=== PATIENT | female | born 1935 | race Caucasian/White ===

== ENCOUNTER 2023-11-07 10:32 | Outpatient (REF) | payer OTHER, SELFPAY ==
[2023-11-07 14:21] LABS: Alanine Aminotransferase 16 U/L (0-31); Albumin Level 3.9 g/dL (3.5-5.0); Alkaline Phosphatase 63 U/L (39-117); Anion Gap 11 (12-20); Aspartate Amino Transferase 17 U/L (5-31); Bilirubin Direct 0.2 mg/dL (0.0-0.5); Bilirubin Total 0.7 mg/dL (0.0-1.0); Blood Urea Nitrogen 13 mg/dL (9-16); Calcium 9.8 mg/dL (8.4-10.2); Carbon Dioxide 27 mmol/L (22-29); Chloride 108 mmol/L (96-108); Cholesterol 195 mg/dL (<200); Estimated Glomerular Filt Rate > 60; Glucose Random 110 mg/dL (60-115); HDL Cholesterol 63 mg/dL (>40); LDL Cholesterol Calculated 99 mg/dL (<100); Potassium 3.3 mmol/L (3.3-5.1); Sodium 143 mmol/L (135-145); Total Protein 6.6 g/dL (6.5-8.0); Triglycerides 168 mg/dL (<150)
[2023-11-07 14:28] LABS: Vitamin D 25-OH Total 39.5 ng/mL (>30)
== END 2023-11-07 10:33 | disposition home or self-care (01) ==
LOC: HO.CHCLDS 10:32
PROVIDERS: Visit Provider Student in an Organized Health Care Education/Training Program
DX: I10 Essential (primary) hypertension (principal); E78.5 Hyperlipidemia, unspecified; E55.9 Vitamin D deficiency, unspecified
CPT/HCPCS: 36415; 80048; 80061; 80076; 82306

== ENCOUNTER 2024-11-05 09:58 | Outpatient (REF) | payer OTHER, SELFPAY ==
--- OUTSIDE RECORDS SUMMARY | 2024-11-05 11:39 | XMS_ITS | Encounter Summary ---
Author Organization [employer] Address [address] [facility] 7t h Floor [place] [id number] Care Team Providers Care Land Lease Information Clerk Name Role Phone Sandy Rivers MD Primary Care Provider [phone] Encounter Details Date Type Department Care Team (Latest Contact Info) Description 08/12/2021 Abstract [facility] CONVERSIONS Dental, Provider, DDS Social History Tobacco Use Types Packs/Day Years Used Date Smoking Tobacco: Never Assessed Comments Unknown Sex and Gender Information Value Date Recorded Sex Assigned at Female 06/06/2022 10:22 AM EDT Legal Sex Female 10:22 AM EDT Gender Identity Female 06/06/2022 10:22 AM EDT Sexual Orientation Straight 06/06/2022 10 :22 AM EDT documented as of this encounter Plan of Treatment Not on file documented as of this encounter Visit Diagnoses Not on filedocumented in this encounter Care Teams Land Lease Information Clerk Relationship Specialty Start Date End Date Sandy Rivers MD [address] [place] [id number] PCP - General Family Medicine 08/15/13 documented as of this encounter
--- OUTSIDE RECORDS SUMMARY | 2024-11-05 11:39 | XMS_ITS | Encounter Summary ---
Author Organization [email or web address] Address [address] [facility] 7t [place] [address] Care Team Providers Care Inspector Material Disposition Name Role Phone Sandy Rivers MD Primary Care Provider [phone] Reason for Visit * Reason Comments Hypertension Encounter Details Date Type Department Care Team (Latest Contact Info) Description 11/05/2024 10:00 AM EDT Office Visit [facility] CHC MED & PEDS [address] [place], [place] [phone] Sandy Rivers MD [address] [place], [place] [id number] Primary hypertension (Primary Dx); Hyperlipidemia, unspecified hyperlipidemia type; Vitamin D deficiency Social History Tobacco Use Types Packs/Day Years Used Date Smoking Tobacco: Never Passive Smoke Exposure: Never Smokeless Tobacco: Never Tobacco Cessation:Counseling Given: Not Answered Alcohol Use Standard Drinks/Week Comments Defer 0 (1 standard drink = 0.6 oz pur e alcohol) Depression Answer Date Recorded Patient Health Questionnaire-9 Score 4 03/13/2024 Patient Health Questionnaire-9 Score 4 03/13/2024 Last PHQ-9: Questionnaire Data Not on file 0 03/13/2024 Housing Stability Answer Date Recorded What is your housing situation today? I have harvinder gates 11/05/[address] you li ve. Do you have problems with any of the following? None of the above 11/05/2024 Food Insecurity Answer Date Recorded Within the past 12 months, y ou worried that your food would run out before you got money to buy more: Never True 11/05/2024 Within the past 12 months,th e food you bought just didn't last and you didn't have enough money to get more: Never True 08/2024 Transportation Answer Date Recorded In the past 12 months, has l ack of transportation kept you from medical appts, meetings, work or from getting things needed for daily living? No 11/05/2024 Utilities Answer Date Recorded In the past 12 months, has t he electric, gas, oil or water company threatened to shut off services in your home? No 11/05/2024 Depression Answer Date Recorded Patient Health Questionnaire-2 Score 2 03/13/2024 Internet Access Answer Date Recorded Internet Access Q1 No 11/05/2024 Internet Access Q2 I do not want or need it 08/2024 Comments No Sex and Gender Information Value Date Recorded Sex Assigned at Female 06/06/2022 10:22 AM EDT Legal Sex Female 10:22 AM EDT Gender Identity Female 06/06/2022 10:22 AM EDT Sexual Orientation Straight 06/06/2022 10 :22 AM EDT documented as of this encounter Last Filed Vital Signs Vital Sign Reading Time Taken Comments Blood Pressure 145/69 11/05/2024 9:39 AM EDT Pulse 93 11/05/2024 9:39 AM EDT Temperature 36.6 ??C (97.9 ??F) 11/05/2024 9:39 AM ED T Respiratory Rate 18 11/05/2024 9:39 AM EDT Oxygen Saturation - - Inhaled Oxygen Concentration - - Weight 87.5 kg (193 lb) 11/05/2024 9:39 AM EDT Height 163.8 cm (5' 4.5 ) 11/05/2024 9:39 AM EDT Body Mass Index 32.62 11/05/2024 9:39 AM EDT documented in this encounter Progress Notes * Sandy Rivers MD - 11/05/2024 10:00 AM EDT Subjective Patient ID: Gracia James is a 89 y.o. female who presents for Hypertension. Hypertension This is a chronic problem. The current episode started more than 1 year ago. The problem is unchanged. The problem is controlled. Pertinent negatives include no anxiety, blurred vision, chest pain, headaches, malaise/fatigue, neck pain, orthopnea, palpitations, PND, shortness of breath or sweats. Risk factors for coronary artery disease include family history and sedentary lifestyle. Past treatments include diuretics. The current treatment provides significant improvement. There are no compliance problems. Review of Systems Constitutional: Negative. Negative for malaise/fatigue. Eyes: Negative for blurred vision. Respiratory: Negative. Negative for shortness of breath. Cardiovascular: Negative for chest pain, palpitations, orthopnea and PND. Gastrointestinal: Negative. Genitourinary: Negative. Musculoskeletal: Negative for neck pain. Neurological: Negative for headaches. Objective Physical Exam Constitutional: Appearance: Normal appearance. Cardiovascular: Rate and Rhythm: Normal rate and regular rhythm. Pulses: Normal pulses. Heart sounds: Normal heart sounds. Pulmonary: Effort: Pulmonary effort is normal. Abdominal: General: Abdomen is flat. Neurological: Mental Status: She is alert. Assessment/Plan Diagnoses and all orders for this visit: Primary hypertension Comments: Well controlled No changes in meds Maintain a low-sodium diet (less than 2 grams per day). Maintain a regular cardiovascular exercise program. Advised to maintain a low-fat, low-cholesterol diet. Counseled regarding importance of weight loss. Counseled re: potential co-morbidities including cardiovascular disease. Orders: - Basic Metabolic Panel; Future - Lipid Panel, Standard; Future - Hepatic Function Panel; Future Hyperlipidemia, unspecified hyperlipidemia type Comments: Cont Statin Advised to maintain a low-fat, low-cholesterol diet. Orders: - Lipid Panel, Standard; Future - Hepatic Function Panel; Future Vitamin D deficiency Comments: Labs ordered Orders: - 25 OH Vitamin D Other orders - Diclofenac Sodium (Voltaren) 1 % gel; Use topical BID documented in this encounter Plan of Treatment Scheduled Orders Name Type Priority Associated Diagnoses Orde r Schedule Basic Metabolic Panel Lab Routine Primary hypertension Expected: 11/05/2024 (Approximate), Expires: 11/05/2025 Lipid Panel, Standard Lab Routine Primary hypertension Hyperlipidemia, unspecified hyperlipidemia type Expected: 11/05/2024 (Approximate), Expires: 11/05/2025 Hepatic Function Panel Lab Routine Primary hypertension Hyperlipidemia, unspecified hyperlipidemia type Expected: 11/05/2024 (Approximate), Expires: 11/05/2025 25 OH Vitamin D Lab Routine Vitamin D deficiency Ordered: 11/05/2024 documented as of this encounter Visit Diagnoses Diagnosis Primary hypertension- Primary Unspecified essential hypertension Hyperlipidemia, unspecified hyperlipidemia type Vitamin D deficiency documented in this encounter Additional Health Concerns Assessment Noted Time PHQ-9 Depression Total Score: 4 03/13/20 24 10:49 AM EDT documented as of this encounter Care Teams Inspector Material Disposition Relationship Specialty Start Date End Date Sandy Rivers MD [address] [place] [address] PCP - General Family Medicine 08/15/13 documented as of this encounter
--- OUTSIDE RECORDS SUMMARY | 2024-11-05 11:39 | XMS_ITS | Encounter Summary ---
Author Organization [employer] Address 75 [facility] 7t [place] [address] Care Team Providers Care Health Actuary Name Role Phone Sandy Rivers MD Primary Care Provider [phone] Reason for Visit * Reason Onset Date Comments Durable Medical Equipment 09/22/2022 Encounter Details Date Type Department Care Team ([facility] st Contact Info) Description 09/22/2022 Telephone C [facility] MED & PEDS [address] [place] [address] Sandy Rivers MD [address] [place] [address] Durable Medical Equipment Social History Tobacco Use Types Packs/Day Years Used Date Smoking Tobacco: Never Assessed Comments Unknown Sex and Gender Information Value Date Recorded Sex Assigned at Female 06/06/2022 10:22 AM EDT Legal Sex Female 10:22 AM EDT Gender Identity Female 06/06/2022 10:22 AM EDT Sexual Orientation Straight 06/06/2022 10 :22 AM EDT documented as of this encounter Miscellaneous Notes * Telephone Encounter - Ileana Wilhelm - 09/22/2022 3:51 PM EST Tc from pt requesting a script for Wipes and Bladder pads/bed pads. [facility] and has fax over script but no reply has come back. Facility Fax number is [phone]. Pt states that facility needs an okay from us to keep providing pt with supplies. If any questions please contact pt at [phone] documented in this encounter Plan of Treatment Not on file documented as of this encounter Visit Diagnoses Not on filedocumented in this encounter Care Teams Health Actuary Relationship Specialty Start Date End Date Sandy Rivers MD [address] [place] [id number] PCP - General Family Medicine 08/15/13 documented as of this encounter
--- OUTSIDE RECORDS SUMMARY | 2024-11-05 11:39 | XMS_ITS | Encounter Summary ---
Author Organization [employer] Address [address] [facility] 7t [place] [address] Care Team Providers Care Pbx Installer Name Role Phone Sandy Rivers MD Primary Care Provider [phone] Encounter Details Date Type Department Care Team (Late st Contact Info) Description 07/06/2023 Orders Only [facility] CHC MED & PEDS [address] [place] [address] Mariajose Costa LPN Social History Tobacco Use Types Packs/Day Years Used Date Smoking Tobacco: Never Passive Smoke Exposure: Never Smokeless Tobacco: Never Alcohol Use Standard Drinks/Week Comments Defer 0 (1 standard drink = 0.6 oz pur e alcohol) Depression Answer Date Recorded Patient Health Questionnaire-9 Score 0 01/12/2023 Housing Stability Answer Date Recorded What is your housing situation today? I have harvindermalaika gates 06/17/[address] you li ve. Do you have problems with any of the following? None of the above 06/17/2023 Food Insecurity Answer Date Recorded Within the past 12 months, y ou worried that your food would run out before you got money to buy more: Never True 06/17/2023 Within the past 12 months,th e food you bought just didn't last and you didn't have enough money to get more: Never True 06/2023 Transportation Answer Date Recorded In the past 12 months, has l ack of transportation kept you from medical appts, meetings, work or from getting things needed for daily living? No 06/17/2023 Utilities Answer Date Recorded In the past 12 months, has t he electric, gas, oil or water company threatened to shut off services in your home? No 06/17/2023 Depression Answer Date Recorded Patient Health Questionnaire-2 Score 0 01/12/2023 Comments Unknown Sex and Gender Information Value Date Recorded Sex Assigned at Female 06/06/2022 10:22 AM EDT Legal Sex Female 10:22 AM EDT Gender Identity Female 06/06/2022 10:22 AM EDT Sexual Orientation Straight 06/06/2022 10 :22 AM EDT documented as of this encounter Plan of Treatment Not on file documented as of this encounter Visit Diagnoses Not on filedocumented in this encounter Additional Health Concerns Assessment Noted Time PHQ-9 Depression Total Score: 0 01/13/20 23 10:38 AM EDT documented as of this encounter Care Teams Pbx Installer Relationship Specialty Start Date End Date Sandy Rivers MD [address] [place] [address] PCP - General Family Medicine 08/15/13 documented as of this encounter
--- OUTSIDE RECORDS SUMMARY | 2024-11-05 11:39 | XMS_ITS | Clinical Summary ---
Author Organization [employer] Address [address] [facility] 7t [place] [address] Care Team Providers Care Skin Diving Teacher Name Role Phone Sandy Rivers MD Primary Care Provider [phone] Allergies No known active allergies Medications loratadine (Claritin) 10 MG tablet Take 1 tablet by mouth at bed time. 03/30/20 16 Active Multiple Vitamin (Multi-Vitamin) tablet Take 1 tablet by mouth at bed time. 08/22/19 21 Active fluticasone (Flonase) 50 MCG/ACT nasal spray INSTILL ONE SPRAY IN EACH NOSTRIL EVERY DAY 16 g 3 06/19/20 23 Active hydroCHLOROthiaz jorge (HYDRODiuril) 25 MG tablet Take 1 tablet (25 mg) by mouth Once per day. 90 tablet 3 03/13/20 24 Active FLUoxetine (PROzac) 10 MG capsule Take 1 capsule (10 mg) by mouth Once per day. 90 capsule 3 03/13/20 24 025 Active rosuvastatin (Crestor) 20 MG tablet Take 1 tablet by mouth nightly before bed 90 tablet 3 03/13/20 24 Active Calcium + Vitamin D3 600-10 MG-MCG tablet Take 1 tablet by mouth 2 times daily. Active IBU 800 MG tablet TAKE ONE TABLET BY MOUTH THREE TIMES DAILY WITH FOOD NEEDED 90 tablet 5 07/18/20 24 Active silver sulfADIAZINE (Silvadene) 1 % cream APPLY TO THE AFFECTED AREA(S) EVERY DAY DIRECTED 50 g 2 09/17/19 25 Active Diclofenac Sodium (Voltaren) 1 % gel Use topical BID 100 g 3 11/06/19 25 Active polyethylene glycol, PEG, 3350 (MiraLax) 17 GM/SCOOP powder Take 1 packet by mouth every 12 (twelve) hours. 12/22/19 17 025 Discontinued Active Problems Problem Noted Date Diagnosed Date Primary hypertension 01/12/2023 Osteopenia 05/04/2012 Hyperlipidemia 03/26/2012 Inguinal lymphadenopathy 03/26/2012 Vitamin D deficiency 03/26/2012 Encounters Date Type Department Care Team Description 11/05/2024 10:00 AM EDT Office Visit [facility] MED & PEDS [address] [facility] [place] [address] Sandy Rivers MD Primary hypertension (Primary Dx); Hyperlipidemia, unspecified hyperlipidemia type; Vitamin D deficiency 11/05/2024 Travel 10/14/2024 Telephone [facility] MED & PEDS [address] [facility] [place] [address] Sandy Rviers MD Nurse Triage 09/13/2024 Refill [facility] MED & PEDS [address] [facility] [place] [address] Sandy Rivers MD 08/20/2024 11:30 AM EST Office Visit [facility] ADULT DENTAL [address] [facility] [place] [address] Nieves Tanner DMD 08/20/2024 Travel from Last 3 Months Immunizations Name Administration Dates Next Due Influenza High-dose Quadriva lent Preservative Free 06/03/2022,06/10/2021,04/27/2020 Influenza Quadrivalent Adjuvanted 06/12/2023 Influenza injectable quadriv alent IIV4 with preservative 05/27/2019 Influenza injectable quadriv alent preservative free 09/11/2018 Pneumococcal Conjugate PCV 13 05/22/2018 Pneumococcal Polysaccharide PPSV23 05/27/2019 Tdap 03/10/2016 Zoster, Recombinant 08/27/2020,05/28/2020 Social History Tobacco Use Types Packs/Day Years [...] Orientation Straight 06/06/2022 10 :22 AM EDT Last Filed Vital Signs Vital Sign Reading Time Taken Comments Blood Pressure 145/69 11/05/2024 9:39 AM EDT Pulse 93 11/05/2024 9:39 AM EDT Temperature 36.6 ??C (97.9 ??F) 11/05/2024 9:39 AM ED T Respiratory Rate 18 11/05/2024 9:39 AM EDT Oxygen Saturation 96% 03/13/2024 10:46 AM EDT Inhaled Oxygen Concentration - - Weight 87.5 kg (193 lb) 11/05/2024 9:39 AM EDT Height 163.8 cm (5' 4.5 ) 11/05/2024 9:39 AM EDT Body Mass Index 32.62 11/05/2024 9:39 AM EDT Plan of Treatment Health Maintenance Due Date Last Done Comments RSV Patients and Patients Aged 60 years or older (1 - 1-dose 75+ series) 2011 Alcohol/Substance Use Screening 11/06/2024 11/07/2023 Dental Oral Exam 12/18/2024 06/19/2024, 12/27/2022 Dental Prophylaxis 12/18/2024 06/19/2024, 0 12/04/2023, 12/27/2022, Additional history exists Depression Screening 03/13/2025 03/13/2024, 03/13/20 24 Dental X-Ray: Bitewings 08/21/2025 08/20/19 25, 06/19/2024, 12/27/2022, Additional history exists SDOH Screening 11/05/2025 11/05/2024 Tobacco Screening 11/05/2025 11/05/2024 DTaP/Tdap/Td Vaccines (2 - Td or Tdap) 03/10/2026 03/10/2016 Dental X-Ray: Full Mouth 06/20/2027 06/19/2024 Lipid Panel 11/06/2028 11/07/2023, 01/05, 12/09/2021, Additional history exists Pneumococcal Vaccine: 50+ Years Completed 05/27/2019, 05/22/2018 Zoster Vaccines Completed 08/27/2020, 05/28/2020 COVID-19 Vaccine Completed 05/14/2024, 01/2023, 06/22/2022, Additional history exists Influenza Vaccine Completed 05/14/2024, , 06/03/2022, Additional history exists HIB Vaccines Aged Out No longer eligi ble based on patient's age to complete this topic HPV Vaccines Aged Out No longer eligi ble based on patient's age to complete this topic Hepatitis A Vaccines Aged Out No long er eligible based on patient's age to complete this topic Hepatitis B Vaccines Aged Out No long er eligible based on patient's age to complete this topic IPV Vaccines Aged Out No longer eligi ble based on patient's age to complete this topic Meningococcal Vaccine Aged Out No lindsay maria victoria eligible based on patient's age to complete this topic RSV under 20 months Aged Out No longe r eligible based on patient's age to complete this topic Rotavirus Vaccines Aged Out No longer eligible based on patient's age to complete this topic Procedures Procedure Name Priority Date/Time Associated Diagnosis Comments CASE PRESENTATION, DETAILED AND EXTENSIVE TREATMENT PLANNING Routine 08/20/2024 11:30 AM EST BITEWING - SINGLE RADIOGRAPHIC IMAGE Routine 08/20/2024 11:30 AM EST INTRAORAL - PERIAPICAL FIRST RADIOGRAPHIC IMAGE Routine 08/20/2024 11:30 AM EST LIMITED ORAL EVALUATION - PROBLEM FOCUSED Routine 08/20/2024 11:30 AM EST PROPHYLAXIS - ADULT Routine 06/19/2024 1 0:00 AM EST INTRAORAL - COMPLETE SERIES OF RADIOGRAPHIC IMAGES Routine 06/19/2024 10:00 AM EST PERIODIC ORAL EVALUATION - ESTABLISHED PATIENT Routine 06/19/2024 10:00 AM EST LIPID PANEL, STANDARD Routine 11/07/2023 10:34 AM EDT Hyperlipidemia, unspecified hyperlipidemia type from Last 3 Months or Most Recently Relevant to Health Maintenance Results * (ABNORMAL) Lipid Panel, Standard (11/07/2023 10:34 AM EDT) Triglycerides 168(H) <150 mg/dL [facility] Comment:Desirable Triglyceri de: less than 150 mg/dLBorderline High Triglyceride 150-199 mg/dLHigh Triglyceride: 200-499 mg/dLVery High Triglyceride: greater than or equal to 5OO mg/dL Cholesterol 195 <200 mg/dL [facility] Comment:Desirable Cholestero l: less than 200 mg/dLBorderline High Cholesterol: 200-239 mg/dLHigh Cholesterol: greater than 239 mg/dL LDL Cholesterol Calculated 99 <100 mg/dL [facility] Comment:Desirable LDL: less than 100 mg/dLNear Optimal/Above Optimal LDL: 110- 129 mg/dLBorderline High LDL: 130-159 mg/dLHigh LDL: 160-189 mg/dLVery High LDL: greater than or equal to 190 mg/dL HDL Cholesterol 63 >40 mg/dL [facility] Comment:Desirable HDL: great er than 40 mg/dL Note: This HDL assay may give artificially low results in patients with liver disease. Blood Venous blood specimen / Unknown 11/07/2023 10:34 AM EDT 11/07/2023 1:48 PM EDT us Sandy Rivers MD LAB BLOOD ORDERABLES Final Resul t [facility] [address] [place] [address] [phone] from Last 3 Months or Most Recently Relevant to Health Maintenance Insurance D[facility]AL - [facility] Care Teams Skin Diving Teacher Relationship Specialty Start Date End Date Sandy Rivers MD [address] [place] [address] PCP - General Family Medicine 08/15/13
--- OUTSIDE RECORDS SUMMARY | 2024-11-05 11:39 | XMS_ITS | Clinical Summary ---
Author Organization [facility] Address [address] [place] [address] Care Team Providers Care Car Packer Name Role Phone Osvaldo South MD Primary Care Provider [phone] Medications Medication Sig Dispensed Refills Start Date End Date Status rosuvastatin (CRESTOR) tablet 20 mg Take 20 mg by mouth daily. 0 11/15/2021 Active hydroCHLOROthiazide (HYDRODIURIL) tablet 25 mg Take 25 mg by mouth daily. 0 11/24/2021 Active ibuprofen 800 MG tablet TAKE ONE TABLET BY MOUTH THREE TIMES DAILY WITH FOOD NEEDED 0 11/01/2021 Active Calcium + Vitamin D3 600-10 MG-MCG TABS TAKE ONE TABLET TWICE DAILY 0 11/02/2021 Active Family History Medical History Relation Name Comments Cancer Mother Cancer Sister Relation Name Status Comments Mother Sister Social History Tobacco Use Types Packs/Day Years Used Date Smoking Tobacco: Never Assessed Sex and Gender Information Value Date Recorded Sex Assigned at Not on file Gender Identity Not on file Sexual Orientation Not on file Job Start Date Occupation Industry Not on file Not on file Not on file Last Filed Vital Signs Vital Sign Reading Time Taken Comments Blood Pressure - - Pulse - - Temperature - - Respiratory Rate - - Oxygen Saturation - - Inhaled Oxygen Concentration - - Weight 93 kg (205 lb) 12/24/2021 10:04 AM EDT Height 162.6 cm (5' 4 ) 12/24/2021 10:04 AM EDT Body Mass Index 35.19 12/24/2021 10:04 AM EDT Plan of Treatment Health Maintenance Due Date Last Done Comments COVID-19 Vaccine (#1) 1936 Depression Screening 1948 BMI Counseling 1954 Preventative Health Evaluation 1954 DTap / Tdap / Td (1 - Tdap) 1955 Shingrix-Zoster Vaccine (1 of 2) 1986 Fall Risk Assessment 2001 Osteoporosis Screening (DEXA Scan) 2001 Pneumococcal Vaccine (1 of 1 - PCV) 2001 RSV Adult > 60+ Yrs or Pregn ant (1 - 1-dose 75+ series) 2011 Influenza Vaccine (#1) 2024 Hepatitis B Vaccines Aged Out No long er eligible based on patient's age to complete this topic RSV Ped < 20 months Aged Out No longe r eligible based on patient's age to complete this topic Care Teams Car Packer Relationship Specialty Start Date End Date Po, Osvaldo Mir MD [address] [place] [address] [address] [facility] [place] [address] PCP - General Internal Medicine 12/16/21
--- OUTSIDE RECORDS SUMMARY | 2024-11-05 11:39 | XMS_ITS | Data Portability ---
Author Organization [employer] [place] [employer] Address [address] [place] [id number] Care Team Providers Care Grinder Operator External Tool Name Role Phone HIM CCA OTHER Assessment Encounter Date Assessment Date Assessment LastModified by Organization Details LastModified Time 12/24/2023 12/24/2023 I have reviewed and agree with the assessment and plan as documented by the overnight stocker. I provided real-time medical direction for this encounter and was immediately available to provide additional phone-based assistance as needed. 88F presenting with sore throat x 3 days. Pt recently with pink eye, seen at doctors office on Monday and given erythromycin ointment. She said immediately after, sore throat started. No sick contacts. Able to tolerate small sips of fluids, but difficulty eating solids. No cough or congestion. Slight runny nose. O/E: Pt appears well hydrated. Eye exam normal. Oral pharynx with slight erythema, no significant swelling. Strep negative. Suspect viral pharyngitis. Salt water gargle, medicated lozenges, chloraseptic spray. Recommend Tylenol PRN and ibuprofen as needed (pt without contraindications to NSAIDS). Encouraged adequate PO intake. Red flags and return precautions discussed. paysola Not available 12/24/2023 13:50:41 Plan of Treatment Reminders Order Date Submit Date Provider Last Modified By Organization Details Last Modified Time Details Appointments None record ed. Lab None record ed. Referral None record ed. Procedures None record ed. Surgeries None record ed. Imaging None record ed. Medication Orders None record ed. Patient TargetsNo targets recorded. Patient InstructionsNo instructions recorded. Reason for Referral None Reported. Medical Equipment None Reported. Medications Name Sig Start Date Stop Date Status Note LastModified by Organization Details LastModified Time ibuprofen 800 mg tablet TAKE ONE TABLET BY MOUTH THREE TIMES DAILY WITH FOOD NEEDED active Not Available Not Available No t Available ketorolac 0.5 % eye drops place 1 drop in operative eye twice daily starting 2 days before surgery active Not Available Not Available No t Available erythromycin 5 mg/gram (0.5 %) eye ointment APPLY ONE-HALF INCH strip TO LEFT lower eyelid EVERY 6 HOURS FOR 10 DAYS active Not Available Not Available No t Available fluoxetine 10 mg capsule TAKE ONE CAPSULE EVERY MORNING active Not Available Not Available No t Available hydrochloroth iazide 25 mg tablet TAKE ONE TABLET EVERY DAY active Not Available Not Available No t Available fluticasone propionate 50 mcg/actuation nasal spray,suspens ion INHALE 1 SPRAY IN EACH NOSTRIL ONCE DAILY active Not Available Not Available N ot Available rosuvastatin 20 mg tablet TAKE ONE TABLET EVERY NIGHT BEFORE BEDTIME active Not Available Not Available No t Available calcium 600 mg (as carbonate)-vi tamin D3 10 mcg (400 unit) tablet TAKE ONE TABLET TWICE DAILY active Not Available Not Available No t Available Artificial Tears ([id number] ell-glycerin) 1 %-0.2 %-0.2 % eye drops PLACE ONE DROP IN EACH EYE FOUR TIMES DAILY active Not Available Not Available No t Available Vitals Date Recorded Heart rate Respiratory rate Oxygen saturation Oxygen saturation in Arterial blood by Pulse oximetry Body temperature Systolic blood pressure Diastolic blood pressure Provider Name and Address Organization Details Last Updated DateTime 4 92 /min 16 /min 96 % 96 % 98.3 [degF] 150 mm[Hg] 90 mm[Hg] Bobbi Wakefield MD [address] [place] [address],[address], [place], [phone], [place] - [employer] 4 13:46:53 Date Recorded Body temperature Oxygen saturation Oxygen saturation in Arterial blood by Pulse oximetry Heart rate Respiratory rate Systolic blood pressure Diastolic blood pressure Provider Name and Address Organization Details Last Updated DateTime 4 98.4 [degF] 96 % 96 % 93 /min 16 /min 150 mm[Hg] 90 mm[Hg] Not Available [place] [facility] - [employer] 4 14:15:28 Social History None recorded. Functional Status None recorded. Mental Status None recorded. Family History Nothing Reported. Medical History No medical history recorded. Gynecological HistoryNo gynecological history recorded. Obstetrics History GPAL:G 0 P 0 0 0 0 Past Encounters Encounter ID Performer Location Encounter Start Date Encounter Closed Date Diagnosis/Indication Diagnosis SNOMED-CT Code Diagnosis ICD10 Code Diagnosis Note [id number] Bobbi Wakefield MD [facility] - [facility] [address] [place] [address] 12/24/2023 13:44:36 12/25/2023 11:35:27 Viral pharyngitis 8995653 B34.9 Health Concerns Section Related Observation LastModified by Organization Nicolnida ls LastModified Time None Recorded Concern Status LastModified by Organization Details LastModified Time None Recorded Advance Directives Directive None Recorded Payers Encounter Date Sequence Insurance Name Policy Number Policy Marcano Covered Member ID Marcano Member ID Guarantor Name 12/24/2023 1 [facility] - DOS ON OR AFTER 2022 - DUAL ELIGIBLE - [employer] AND ONE [employer] (MEDICARE REPLACEMENT/AD VANTAGE - HMO) Gracia James [id number] Gracia James Notes Date Note Type Note Provider Name and Address Organization Details Recorded Time 12/24/2023 text/html CRC Nurse Triage Notes (Miek Nunez): Reason For Request: Pt reporting a sore throat, unable to eat or drink due to it>states that she is NOT coughing Chief Complaints: URI, ENT Allergies: No Known Comments: Hydroblaster verified the member's name//address and phone number. Education provided on the response time and the member was advised to monitor reported s/s and seek emergency treatment if needed. Member reports feeling unwell with a sore throat - Decreased PO - Congestion - Denies fever and cough - Denies SOB - Breathing is non labored and the member is speaking full sentences = recently dx with pink on on Monday - Wellness check requested Plastics Tooling Engineer POC Test Results from Misty Eller Rapid strep test (1) [14:15] Strep: - ................... ................... ................... ................... ................... ................... ................... ........ Plastics Tooling Engineer Note From Misty Eller: [facility] Plastics Tooling Engineer Chance Rafita SC6 dispatched to a [facility] for an 88 yof C/O a sore throat X3 days. Upon arrival, the pt was ambulatory, MIDDLETON X4, in no apparent distress. No dyspnea or tachypnea, she was able to speak normally. She stated that she was seen by her PCP on Monday for pinkeye and given erythromycin, which she had been using as directed and she reported that it was improving and the cream helped the itching sensation. She stated that on Monday night, her throat began to hurt, and that it was so painful it was difficult to swallow. She was able to swallow, and had been taking small sips of ice water; she reported decreased PO intake because of the pain. She denied REYES, dizziness, fever, ear pain/itching, vision changes, sinus congestion, cough, CP, SOB, abd pain, N/V/D, or urinary S/S. Strep negative, LS clear. Both adenoids red and swollen; no white spots visualized. [facility] consulted; pt was reassured that the cause was likely viral, and S/S mgmt was discussed. Salt water gargle, tea w/ honey, medicated lozenges, chlorasceptic spray, rest and hydration were recommended; she was instructed to take 1000 mg tylenol every 6 hrs, and sipping ice water was emphasized. Ice cream/popsicles were recommended for PO intake. She was instructed to monitor S/S, and red flags were discussed. ................... ................... ................... ................... ................... ................... ................... ........ Disposition: Donald Wakefield MD [address] [facility],[address], [place], [address], YELE[place] - [employer], CHARO 12/24/2023 15:34:41 OBGyn Episode No OBEpisode recorded.
--- OUTSIDE RECORDS SUMMARY | 2024-11-05 11:39 | XMS_ITS | Encounter Summary ---
Author Organization [employer] Address [address] [facility] [address] h [address] [place] [id number] Care Team Providers Care Chief Medical Officer Name Role Phone Sandy Rivers MD Primary Care Provider [phone] Encounter Details Date Type Department Care Team (Latest Contact Info) Description 04/12/2019 Abstract C CONVERSIONS Dental, Provider, DDS Social History Tobacco [...] on filedocumented in this encounter Care Teams Chief Medical Officer Relationship Specialty Start Date End Date Sandy Rivers MD [address] [place] [id number] PCP - General Family Medicine 08/15/13 documented as of this encounter
--- OUTSIDE RECORDS SUMMARY | 2024-11-05 11:39 | XMS_ITS | Encounter Summary ---
Author Organization [employer] Address [address] [facility] [address] [place] [id number] Care Team Providers Care Drill Setup Operator Name Role Phone Sandy Rivers MD Primary Care Provider [phone] Encounter Details Date Type Department Care Team (Latest Contact Info) Description 05/29/2020 Abstract [facility] CONVERSIONS Dental, Provider, DDS Social History Tobacco [...] on filedocumented in this encounter Care Teams Drill Setup Operator Relationship Specialty Start Date End Date Sandy Rivers MD [address] [place] [id number] PCP - General Family Medicine 08/15/13 documented as of this encounter
--- OUTSIDE RECORDS SUMMARY | 2024-11-05 11:39 | XMS_ITS | Encounter Summary ---
Author Organization [employer] Address [address] [facility] [address]t [place] [address] Care Team Providers Care Fittings Tightener Name Role Phone Sandy Rivers MD Primary Care Provider [phone] Encounter Details Date Type Department Care Team (Latest Contact Info) Description 11/05/2024 Travel Social History Tobacco Use Types Packs/Day Years [...] documented as of this encounter Care Teams Fittings Tightener Relationship Specialty Start Date End Date Sandy Rivers MD [address] [place] [phone] PCP - General Family Medicine 08/15/13 documented as of this encounter
[2024-11-05 17:24] LABS: Alanine Aminotransferase 12 U/L (0-31); Albumin Level 4.1 g/dL (3.5-5.0); Alkaline Phosphatase 65 U/L (39-117); Anion Gap 12 (12-20); Aspartate Amino Transferase 20 U/L (5-31); Bilirubin Direct 0.2 mg/dL (0.0-0.5); Bilirubin Total 0.8 mg/dL (0.0-1.0); Blood Urea Nitrogen 15 mg/dL (9-16); Calcium 10.4 mg/dL (8.4-10.2); Carbon Dioxide 30 mmol/L (22-29); Chloride 103 mmol/L (96-108); Cholesterol 201 mg/dL (<200); Estimated Glomerular Filt Rate > 60; Glucose Random 114 mg/dL (60-115); HDL Cholesterol 68 mg/dL (>40); LDL Cholesterol Calculated 89 mg/dL (<100); Potassium 3.3 mmol/L (3.3-5.1); Sodium 142 mmol/L (135-145); Triglycerides 220 mg/dL (<150)
== END 2024-11-05 09:59 | disposition home or self-care (01) ==
LOC: HO.CHCLDS 09:58
PROVIDERS: Visit Provider Student in an Organized Health Care Education/Training Program
DX: I10 Essential (primary) hypertension (principal); E78.5 Hyperlipidemia, unspecified
CPT/HCPCS: 36415; 80048; 80061; 80076

== ENCOUNTER 2025-01-08 11:54 | Emergency (ER) | payer OTHER, SELFPAY ==
[2025-01-08 11:59] VITALS: BP 108/69; PULSE 96; RESP 14; TEMP 37.5; O2SAT 95; BMI 32.8
[2025-01-08 12:13] LABS: MANUAL DIFF FLAG NO
[2025-01-08 12:14] LABS: Basophils Percent Auto 0.5 % (0-2); Eosinophils Percent Auto 0.2 % (0-4); Hematocrit 39.6 % (37.0-47.0); Hemoglobin 13.5 g/dl (12.0-16.0); Imm Gran Abs Auto 0.02 X10*3/uL (0.00-0.03); Imm Gran Pct Auto 0.3 % (0.0-0.4); Lymphocytes Absolute Auto 0.7 X10*3/uL (1.2-4.9); Lymphocytes Percent Auto 10.9 % (20-40); Mean Corpuscular HGB Conc 34.1 g/dl (31.0-35.0); Mean Corpuscular Hemoglobin 28.8 pg (27.0-33.0); Mean Corpuscular Volume 84.4 fL (80.0-98.0); Mean Platelet Volume 9.3 fL (9.4-12.3); Monocytes Absolute Auto 0.6 X10*3/uL (0.1-1.2); Monocytes Percent Auto 8.4 % (2-11); Neutrophils Absolute Auto 5.2 x10*3/uL (2.0-8.3); Neutrophils Percent Auto 79.7 % (45-73); Platelet Count 217 X10*3/uL (160-400); Red Blood Count 4.69 X10*6/uL (4.20-5.50); Red Cell Distribution Width 13.3 % (11.0-16.0); White Blood Count 6.5 X10*3/uL (4.8-10.8)
[2025-01-08 12:45] LABS: Alanine Aminotransferase 11 U/L (0-31); Albumin Level 3.8 g/dL (3.5-5.0); Anion Gap 14 (12-20); Aspartate Amino Transferase 23 U/L (5-31); Bilirubin Total 0.8 mg/dL (0.0-1.0); Blood Urea Nitrogen 17 mg/dL (9-16); Calcium 9.7 mg/dL (8.4-10.2); Carbon Dioxide 25 mmol/L (22-29); Chloride 102 mmol/L (96-108); Creatinine Clr Calc Pharmacy 45.5; Estimated Glomerular Filt Rate 58; Glucose Random 218 mg/dL (60-115); Potassium 2.9 mmol/L (3.3-5.1); Sodium 138 mmol/L (135-145); Total Protein 6.7 g/dL (6.5-8.0)
--- OUTSIDE RECORDS SUMMARY | 2025-01-08 12:48 | XMS_ITS | Encounter Summary ---
Author Organization [employer] Address [address] [facility] [address] [place] [address] Care Team Providers Care Lock Expert Name Role Phone Sandy Rivers MD Primary Care Provider [phone] Reason for Visit * Reason Onset Date Comments Durable Medical Equipment 09/22/2022 Encounter Details Date Type Department Care Team ([facility] st Contact Info) Description 09/22/2022 Telephone [facility] [address] [place] [address] Sandy Rivers MD [address] [place] [address] Durable Medical Equipment Social History Tobacco Use [...] has come back. Facility Fax number is [phone]. Pt states that facility needs an okay from us to keep providing pt with supplies. If any questions please contact pt at [phone] documented in this encounter Plan of Treatment Not on file documented as of this encounter Visit Diagnoses Not on filedocumented in this encounter Care Teams Lock Expert Relationship Specialty Start Date End Date Sandy Rivers MD [address] [place] [phone] PCP - General Family Medicine 08/15/13 documented as of this encounter
--- NOTE | 2025-01-08 12:49 | PC.NURSE ---
Pt able to provide urine sample, collected and sent. Pt with family members at bedside. Family states they were told by PCP office that pt was sent to ED d/t confusion and left arm pain. Per EMS pt was sent d/t UTI symptoms. Pt denies any confusion or arm pain at this time, states she was told to come to ED for needing IV abx to treat UTI.
[2025-01-08 12:53] LABS: Appearance Urine Turbid; Color Urine Yellow; Glucose Urine UA Negative (Negative); Leukocyte Esterase Urine Large (3+) (Negative); Nitrite Urine Positive (Negative); PH 5.5 (5.0-9.0); Specific Gravity - Urine 1.015 (1.005-1.025); UMIC TRIGGER UACC YES; Urine Blood Moderate (2+) (Negative); Urine Ketones Negative (Negative); Urine Protein 100 (2+) mg/dL (Neg-Trace)
[2025-01-08 12:56] LABS: Bacteria Urine 4+ (None Seen); UACC Culture Trigger YES; WBC Urine >50 /HPF (0-5)
[2025-01-08 13:05] LABS: Alkaline Phosphatase 68 U/L (39-117)
--- NOTE | 2025-01-08 14:04 | ED_ITS ---
HPI - Female Genitourinary General Chief complaint: Urogenital-Female Stated complaint: from [facility], UTI, tachy Time Seen by Provider: 01/08/25 12:49 Source: patient and family (Daughter and granddaughter) Mode of arrival: ambulatory Limitations: no limitations History of Present Illness ED Provider: Dr. Luis Mckeon HPI Narrative: 89-year-old female with a history of hypertension, hyperlipidemia who presents emergency department for evaluation of confusion, cloudy urine, frequency, urgency and tachycardia. The patient went to [facility] and was found to be tachycardic. She was then sent to the emergency department for evaluation. Here in the emergency department the patient had no tachycardia. The daughter states that this morning the patient appeared to the last night she had subjective fever and chills. She also had sweats. She had nausea with several episodes of vomiting with no diarrhea. Urea but did have frequency and urgency over the last 2-3 days. She also states that over this time. She has been feeling fatigued and has been sleeping more than usual. Has never had a urinary tract infection. The patient did not know what medications she is taking however on her home medication search, she is prescribed hydrochlorothiazide 25 mg daily. Related Data Previous Rx's ?Medication ?Instructions ?Recorded cefuroxime axetil 250 mg tablet 250 mg PO Q12H 5 days #10 tabs 01/08/25 potassium chloride 10 mEq 10 meq PO DAILY 30 days #30 tabs 01/08/25 tablet,extended release(part/cryst) Allergies Allergy/AdvReac Type Severity Reaction Status Date / Time No Known Allergies Allergy Verified 01/08/25 12:01 Review of Systems 2 Review of Systems: Yes all other systems are reviewed and are negative Physical Exam 2 Vital Signs: Vital Signs: Last Vital Signs Temp 99.5 F 01/08/25 11:59 Pulse 96 01/08/25 11:59 Resp 14 01/08/25 11:59 BP 108/69 01/08/25 11:59 Pulse Ox 95 01/08/25 11:59 O2 Del Method Room Air 01/08/25 11:59 BMI result Body Mass Index 32.8 Vital signs were normal Exam: General: Awake, alert in no distress Head: Normocephalic, atraumatic EENT: PERRL, Lids normal, sclera normal, conjunctiva normal, nose normal , ears normal, throat without erythema or exudates Neck: Supple, no adenopathy Lung: breath sounds symmetric, no wheezing, rales or rhonchi Chest: symmetric movement, nontender Heart: regular rate and rhythm, normal S1, S2 no murmurs or rubs Abdomen: soft, non-tender, nondistended, normal bowel sounds Back: no vertebral tenderness, no CVAT Extremities: no deformities, moves all extremities symmetrically Neuro: Awake, alert, oriented, normal speech, cranial nerves intact, moves all extremities symmetrically Psych: Pleasant, cooperative Medical Decision Making Medical Decision Making MDM Narrative: 89-year-old female with a history of hypertension, hyperlipidemia who presents emergency department for evaluation of confusion, cloudy urine, frequency, urgency and tachycardia. The patient went to [facility] and was found to be tachycardic. She was then sent to the emergency department for evaluation. Here in the emergency department the patient had no tachycardia. The daughter states that this morning the patient appeared to the last night she had subjective fever and chills. She also had sweats. She had nausea with several episodes of vomiting with no diarrhea. Urea but did have frequency and urgency over the last 2-3 days. She also states that over this time. She has been feeling fatigued and has been sleeping more than usual. Has never had a urinary tract infection. The patient did not know what medications she is taking however on her home medication search, she is prescribed hydrochlorothiazide 25 mg daily. Vital signs were normal Physical examination was unremarkable. Differential diagnosis: ?Includes but is not limited to volume depletion, dehydration, anemia, urinary tract infection Course: 14:35 My independent interpretation patient's laboratory evaluation is as follows: CBC was normal. Potassium was low 2 elevated 17. Glucose elevated 218. LFTs were normal. Urinalysis was positive for blood, leukocyte esterase and nitrates. Microscopic revealed 6-10 RBCs, greater than 50 WBCs 4 +bacteria and 3-5 squamous cells. The patient does have a urinary tract infection based on her symptoms and UA/microscopic. Patient may also have borderline diabetes. Low potassium is most likely caused by hydrochlorothiazide. The patient was given cefuroxime 250 mg orally and potassium chloride 40 mEq orally. She was prescribed cefuroxime 250 mg q.12 hours x5 days and some chloride 10 mEq daily. Patient was advised to follow up with her PCP to determine if she needs treatment for diabetes and if she needs to continue hydrochlorothiazide past 1 month. Admission/Observation Consideration of admission/observation: Escalation of care including admission/observation considered (Yes) Lab Data MDM Lab Attestation statement: I reviewed the patient's lab results. 01/08/25 12:07 01/08/25 12:07 Labs: Lab Results 01/08/25 01/08/25 Range/Units 12:07 12:45 WBC 6.5 (4.8-10.8) X10*3/uL RBC 4.69 (4.20-5.50) X10*6/uL Hgb 13.5 (12.0-16.0) g/dl Hct 39.6 (37.0-47.0) % MCV 84.4 (80.0-98.0) fL MCH 28.8 (27.0-33.0) pg MCHC 34.1 (31.0-35.0) g/dl RDW 13.3 (11.0-16.0) % Plt Count 217 (160-400) X10*3/uL MPV 9.3 L (9.4-12.3) fL Immature Gran % (Auto) 0.3 (0.0-0.4) % Neut % (Auto) 79.7 H (45-73) % Lymph % (Auto) 10.9 L (20-40) % [place] % (Auto) 8.4 (2-11) % Eos % (Auto) 0.2 (0-4) % Baso % (Auto) 0.5 (0-2) % Lymph # (Auto) 0.7 L (1.2-4.9) X10*3/uL [place] # (Auto) 0.6 (0.1-1.2) X10*3/uL Eos # (Auto) 0.0 (0.0-0.4) X10*3/uL Baso # (Auto) 0.0 (0.0-0.2) X10*3/uL Abs Immat Gran (auto) 0.02 (0.00-0.03) X10*3/uL Absolute Neuts (auto) 5.2 (2.0-8.3) x10*3/uL Absolute Nucleated RBC 0.000 (0.0-0.012) X10*3/uL Nucleated RBC % (auto) 0.0 (0.0-0.2) /100WBC Sodium 138 (135-145) mmol/L Potassium 2.9 L* (3.3-5.1) mmol/L Chloride 102 (96-108) mmol/L Carbon Dioxide 25 (22-29) mmol/L Anion Gap 14 (12-20) BUN 17 H (9-16) mg/dL Creatinine 0.91 (0.5-1.4) mg/dL Estim Creat Clear Calc 45.5 Estimated GFR 58 Random Glucose 218 H (60-115) mg/dL Calcium 9.7 D (8.4-10.2) mg/dL Total Bilirubin 0.8 (0.0-1.0) mg/dL AST 23 (5-31) U/L ALT 11 (0-31) U/L Alkaline Phosphatase 68 (39-117) U/L Total Protein 6.7 (6.5-8.0) g/dL Albumin 3.8 (3.5-5.0) g/dL Urine Color Yellow Urine Appearance Turbid Urine pH 5.5 (5.0-9.0) Ur Specific [place] 1.015 (1.005-1.025) Urine Protein 100 (2+) H (Neg-Trace) mg/dL Urine Glucose (UA) Negative (Negative) mg/dL Urine Ketones Negative (Negative) mg/dL Urine Blood Moderate (2+) H (Negative) Urine Nitrite Positive H (Negative) Ur Leukocyte Esterase Large (3+) H (Negative) Urine RBC 6-10 H (0-2) /HPF Urine WBC >50 H (0-5) /HPF Ur Squamous Epith Cells 3-5 (0-2) /HPF Urine Bacteria 4+ (None Seen) Hyaline Casts 3-5 (0-2) /LPF Independent Historian Clinical information obtained from an independent historian. History obtained from or confirmed by: Other (Daughter) Prescription Management I considered prescription management with: Antibiotic (Cefuroxime) and Other (Potassium supple) Chronic Conditions Patient?s care impacted by: Hypertension and Other (Hypercholesterolemia) Discharge Plan Discharge Clinical Impression: Urinary tract infection, Blood glucose elevated, Acute hypokalemia Patient Disposition: Home, Self-Care Instructions: Acute Urinary Retention in Women (ED) Additional Instructions: Your urine test was consistent with a urinary tract infection, you had a large number of white blood cells and a large number of bacteria. Also you have urinary frequency and the sense of urgency to urinate. These are symptoms of a urinary tract infection. Take cefuroxime 250 mg pills, 1 pill every 12 hours for 5 days. This will treat a urinary tract infection. For fever or chills take extra-strength Tylenol 500 mg pills, 2 pills every 6 hours as needed. Your blood work revealed an elevated blood glucose (sugar) of 218. I added a hemoglobin A1c test to your blood work and this may help your doctor determine if you have diabetes and may need to be on medications for high blood sugars. This test will come back today but you can check this test on the patient portal and share this information with your doctor. Your potassium was low at 2.9. Normal is 3.3-5.1. You were given potassium chloride 40 mEq here in the emergency department. I am starting you on potassium chloride 10 mEq daily and I gave you a 1 month supply. Based on my search of your medications, you are prescribed h ydrochlorothiazide 25 mg daily. This medication is a diuretic and does cause you to lose potassium in your urine. I want you to talk to your doctor to see if you need to be on a potassium supplement longer than 1 month or if you can stop out for 1 month. Follow-up with your doctor in 2 days. Please return to the emergency department if your symptoms get worse or if you develop any symptoms that are concerning to you. Prescriptions: New cefuroxime axetil 250 mg tablet 250 mg PO Q12H 5 Days Qty: 10 0RF potassium chloride 10 mEq tablet,ER particles/crystals 10 meq PO DAILY 30 Days Qty: 30 0RF Print Language: Uzbek
[2025-01-08] MEDS: Potassium Chloride Packet 20 MEQ PACKET 40 MEQ PO (14:30)
[2025-01-08] MEDS: cefuroxime axetiL 250 MG TABLET PO (14:30)
[2025-01-08 14:51] LABS: Estimated Average Glucose 128 mg/dL; Hemoglobin A1C 151.2182 umol/L; Hemoglobin A1c % 6.1 % (<6.0)
[2025-01-08 14:59] VITALS: BP 105/63; PULSE 84; RESP 18; TEMP 37.2; O2SAT 95
== END 2025-01-08 15:07 | disposition home or self-care (01) ==
PROVIDERS: Emergency Provider Emergency Medicine Emergency Medical Services; PCP Student in an Organized Health Care Education/Training Program
DX: N39.0 Urinary tract infection, site not specified (principal); E87.6 Hypokalemia; R73.09 Other abnormal glucose; R00.0 Tachycardia, unspecified; R41.0 Disorientation, unspecified; R35.0 Frequency of micturition; E78.5 Hyperlipidemia, unspecified; R11.0 Nausea
CPT/HCPCS: 36415; 80053; 81001; 83036; 85025; 87086; 87088; 87186; 99283; 99284

== ENCOUNTER 2025-01-08 12:51 | Outpatient (REF) | payer OTHER, SELFPAY | END 2025-01-08 12:52 | disposition home or self-care (01) | LOC: HO.CHCLNP 12:51 | PROVIDERS: Visit Provider Student in an Organized Health Care Education/Training Program | DX: Z13.89 Encounter for screening for other disorder (principal) | CPT/HCPCS: 87086 ==

== ENCOUNTER 2025-01-29 10:12 | Outpatient (REF) | payer OTHER, SELFPAY ==
--- OUTSIDE RECORDS SUMMARY | 2025-01-29 11:47 | XMS_ITS | Data Portability ---
Author Organization [employer], [facility] Address [address] [place] [address] Care Team Providers Care Bank Guard Name Role Phone HIM [facility] OTHER [facility] OTHER Assessment Encounter Date Assessment Date Assessment LastModified by Organization Details LastModified Time 12/24/2023 12/24/2023 I have reviewed and agree with the assessment and plan as documented by the cnc mill set up operator. I provided real-time medical direction for this [...] precautions discussed. paysola Not available 12/24/2023 13:50:41 01/15/2025 01/15/2025 As noted, we wer e called to see this patient regarding concerns of vaginal itching. Evaluation in the field was performed by my cnc mill set up operator colleague, as noted above, I provided real-time direction and supervision for this visit. The evaluation revealed 89y F with UTI last week, s/p antibiotics, no further dysuria, feeling well. However, yestrday had vaginal itching. Today reports this sxs is gone. Recommended that if it recurs could try OTC yeast cream or present to PCP for evaluation and to confirm diagnosis. Impression: vaginal itching, s/p UTI treatment Plan: observation Primary care, consider standard interval f/u Disposition: We discussed the diagnostic uncertainty of home visits and the risk associated with this. In this case, the patient and I felt this to be an acceptable and reasonable amount of risk given the benefit of avoiding an ED visit. We discussed the need to seek care urgently/emergently in the setting of any new or worsening serious symptoms, particularly fever, worsening vaginal itching, pelvic pain, nausea, vomiting, confusion, falls, abdominal pain atilhou Not available 01/15/2025 17:13:15 Plan of Treatment Reminders Order Date Submit [...] Referral None Reported. Medical Equipment None Reported. Allergies No known drug allergies Medications Name Sig Start Date Stop Date [...] Not Available No t Available Artificial Tears ([id number] ell-glycerin) 1 %-0.2 %-0.2 % eye drops [...] 150 mm[Hg] 90 mm[Hg] Bobbi Wakefield MD [address] [place] [address],[address], [place], [address] [place] [address] 4 13:46:53 Date Recorded Body temperature Oxygen saturation Oxygen saturation in Arterial blood by Pulse oximetry Heart rate Respiratory rate Systolic blood pressure Diastolic blood pressure Provider Name and Address Organization Details Last Updated DateTime 4 98.4 [degF] 96 % 96 % 93 /min 16 /min 150 mm[Hg] 90 mm[Hg] Not Available [employer] 4 14:15:28 Date Recorded Respiratory rate Body weight Body height Heart rate Oxygen saturation Oxygen saturation in Arterial blood by Pulse oximetry Body temperature Systolic blood pressure Diastolic blood pressure Provider Name and Address Organization Details Last Updated DateTime 5 14 /min 37242.8 g 152.4 cm 80 /min 98 % 98 % 98 [degF] 136 mm[Hg] 78 mm[Hg] Not Available [facility] 5 17:07:35 Social History None recorded. Functional Status None recorded. Mental Status None recorded. Family History Nothing Reported. Medical History No medical history recorded. Gynecological HistoryNo gynecological history recorded. Obstetrics History GPAL:G 0 P 0 0 0 0 Past Encounters Encounter ID Performer Location Encounter Start Date Encounter Closed Date Diagnosis/Indication Diagnosis SNOMED-CT Code Diagnosis ICD10 Code Diagnosis Note [id number] [facility] - [address] [address] 12/24/2023 13:44:36 12/25/2023 11:35:27 Viral pharyngitis 5575905 B34.9 [id number] Elle Alcaraz MD [facility] [address] [address] 01/15/2025 17:07:32 01/15/2025 21:05:47 Pruritus of vagina 75347055 N89.8 Health Concerns Section Related Observation LastModified by Organization Detai ls LastModified Time None Recorded Concern Status LastModified by Organization Details LastModified Time None Recorded Advance Directives Directive None Recorded Payers Insurance Date Sequence Insurance Name Policy Number Policy Marcano Covered Member ID Marcano Member ID Guarantor Name 01/15/2025 1 [facility] - DOS ON OR AFTER 2022 - DUAL ELIGIBLE - ASSISTED OPTIONS AND ONE CARE (MEDICARE REPLACEMENT/AD VANTAGE - HMO) Gracia James [id number] Gracia James Notes Date Note Type Note Provider Name and Address Organization Details Recorded Time 12/24/2023 text/html [facility] Nurse Triage Notes (Mike Nunez): Reason For Request: Pt reporting a sore throat, unable to eat or drink due to it>states that she is NOT coughing Chief Complaints: URI, ENT Allergies: No Known Comments: Mud Jack Operator verified the member's name//address and phone number. [...] on on Monday - Wellness check requested Inserting Operator POC Test Results from Misty Eller - NIKUNJ Rapid strep test (1) [14:15] Strep: - ....................... ....................... ....................... ....................... ....................... ....................... ... Inserting Operator Note From Misty Eller: Community Inserting Operator Chance Eller [email or web address] dispatched to a [facility] for an 88 yof C/O a sore [...] monitor S/S, and red flags were discussed. ....................... ....................... ....................... ....................... ....................... ....................... ... Disposition: Donald Wakefield MD [address] [facility],[address], [place], [address], [employer] 12/24/2023 15:34:41 01/15/2025 text/html HPI: Call returned to Gracia James to triage below at [phone]. Reports being sent to [facility] on 01/08 for similar sx. Per pt having vaginal itching. Per pt still on the potassium. Per pt finished cefuroxime rx yesterday. Having cloudy urine. No odor or dark color. Denies any pelvic pain or flank. Denies any fever or chills. Pt advised of disposition, no appts in [facility]. agrees to instED referral for evaluation. Confirmed demographics and allergies. ....................... ....................... ....................... ....................... ....................... ....................... ... [facility] Nurse Triage Notes (Juanita Saravia): Chief Complaints: Urinary Symptoms PMH: Hypertension, Hyperlipidemia PMH Reviewed at 01/15/2025 13:14 Allergies Reviewed at 01/15/2025 13:14 Comments: HPI reviewed Inserting Operator Organization Information for Gilberto Lovelace Legal Name: [facility] Address: [address] [place] [address], [place] [address], Special Education Inclusion Teacher: Hitesh Hacnock MD [facility] No.: [id number] Inserting Operator POC Test Results from Gilberto Lovelace Urine Dipstick (17:04:20) Urine leukocytes: ++++ ANCELMO Urine nitrites: - NIT Urine urobilinogen: 0.2 URO Urine protein: 300 PRO Urine pH: 7.0 pH Urine blood: +++ BLO Urine specific gravity: 1.015 SG Urine ketones: - KET Urine bilirubin: - YEISON Urine glucose: - GLU [facility] HPI: tx for UTI last week, last dose 2 days ago, tx'd with cefuroxime. no sxs for three days then yesterday had a lot of vaginal itching but today this is gone. SEGMD: I did not participate in the care of this patient. The [facility] closed the encounter before the medic note could transfer over so I am entering the medic summary here: SummaryPatient alert and oriented complains of intermittent itching and cloudy urine. Patient reports she finished antibiotics as prescribed two days ago, itching began yesterday. Patient reports itching isn t present at this time. Patient denies this area, reports increased frequency and decreased output stopped with antibiotic treatment. Patient denies abdominal pain, dysuria, CVA tenderness, nausea, vomiting change in appetite, or any other pain or complaint.Patient pink warm dry secondary exam unremarkable. Lung sounds clear negative increased work of breathing positive full sentences abdomen soft, nontender extremities unremarkable. Good skin turgor. Negative CVA tenderness.UA to [facility] orders patient to follow up with PCP, possible need for physical exam.Patient demonstrates understanding of care and plan, red flags, patient education discussed.Services ProvidedUrine Dipstick, Patient EducationReferring Provider Labs---[facility] Lab Orders---C Medication Orders---DispositionFul filledWas patient sent to ED?[facility] consulted on the case?Yes - Barrett Alcaraz MD [address] [place] [address],[address], [place], [address], [employer] [facility] [place] 01/27/2025 19:58:04 OBGyn Episode No OBEpisode recorded.
[2025-01-29 14:38] LABS: Appearance Urine Cloudy; Color Urine Yellow; Glucose Urine UA Negative (Negative); Nitrite Urine Negative (Negative); Specific Gravity - Urine 1.015 (1.005-1.025); UMIC TRIGGER UACC YES; Urine Blood Large (3+) (Negative); Urine Ketones Negative (Negative); Urine Protein 100 (2+) mg/dL (Neg-Trace)
[2025-01-29 14:40] LABS: Leukocyte Esterase Urine Large (3+) (Negative)
[2025-01-29 14:48] LABS: Alanine Aminotransferase 10 U/L (0-31); Alkaline Phosphatase 80 U/L (39-117); Anion Gap 15 (12-20); Aspartate Amino Transferase 20 U/L (5-31); Bilirubin Direct 0.2 mg/dL (0.0-0.5); Bilirubin Total 0.6 mg/dL (0.0-1.0); Blood Urea Nitrogen 18 mg/dL (9-16); Calcium 10.1 mg/dL (8.4-10.2); Carbon Dioxide 27 mmol/L (22-29); Chloride 104 mmol/L (96-108); Cholesterol 194 mg/dL (<200); Estimated Average Glucose 134 mg/dL; Estimated Glomerular Filt Rate > 60; Glucose Random 132 mg/dL (60-115); HDL Cholesterol 62 mg/dL (>40); Hemoglobin A1c % 6.3 % (<6.0); LDL Cholesterol Calculated 98 mg/dL (<100); Potassium 3.3 mmol/L (3.3-5.1); Sodium 143 mmol/L (135-145); Triglycerides 174 mg/dL (<150)
[2025-01-29 15:01] LABS: Bacteria Urine 3+ (None Seen); Hyaline Casts Urine 0-2 /LPF (0-2); UACC Culture Trigger YES; WBC Clumps Urine Present; WBC Urine >50 /HPF (0-5)
== END 2025-01-29 10:13 | disposition home or self-care (01) ==
LOC: HO.CHCLDS 10:12
PROVIDERS: Visit Provider Student in an Organized Health Care Education/Training Program
DX: I10 Essential (primary) hypertension (principal); N39.0 Urinary tract infection, site not specified
CPT/HCPCS: 36415; 80048; 80061; 80076; 81001; 83036; 87086; 87088; 87186